=== PATIENT | male | born 1995 | race Two or more races ===

== ENCOUNTER 2023-07-15 20:55 | Emergency (ER) | payer OTHER ==
[~2023-07-15] VITALS: Ht 170.2 cm; Wt 115.7 kg
[2023-07-16] MEDS ORDERED: DEXAMETHASONE SODIUM PHOSPHATE 4 MG/ML VIAL IM ONE (00:45)
[2023-07-16] MEDS ORDERED: ACETAMINOPHEN 500 MG GEL..CAP PO ONE (00:45)
[2023-07-16 01:31] LABS: HEMATOCRIT 44.6 % (39.0-48.0); HEMOGLOBIN 15.7 g/dL (13-16.00); MEAN CELL VOLUME 83.7 fL (80.0-100.00); MEAN CORPUSCULAR HEMOGLOBIN 29.4 pg (27.00-32.0); MEAN CORPUSCULAR HGB CONC 35.1 g/dl (32.0-36.0); PLATELET COUNT 263 K/uL (150-450); RED BLOOD COUNT 5.33 M/uL (4.00-6.00); RED CELL DISTRIBUTION WIDTH 13.1 % (11.5-14.5)
[2023-07-16] MEDS ORDERED: OSEL75CA PO (02:37)
== END 2023-07-16 02:40 | disposition home or self-care (01) ==
LOC: ER 20:56
PROVIDERS: General Practice
DX: J11.1 Influenza due to unidentified influenza virus with other respiratory manifestations (principal); Z20.822 Contact with and (suspected) exposure to COVID-19

== ENCOUNTER 2024-01-18 11:12 | Emergency (ER) | payer OTHER ==
[~2024-01-18] VITALS: Ht 165.1 cm; Wt 117.9 kg
[~2024-01-18 11:12] MED LIST: OSEL75CA PO
[2024-01-18 11:25] VITALS: BP 106/63; O2SAT 97
[2024-01-18] MEDS ORDERED: BARIUM SULFATE 450 ML ORAL.SUSP PO ONE (11:50)
[2024-01-18 12:04] LABS: HEMATOCRIT 44.7 % (39.0-48.0); HEMOGLOBIN 15.3 g/dL (13-16.00); MEAN CELL VOLUME 84.3 fL (80.0-100.00); MEAN CORPUSCULAR HEMOGLOBIN 28.7 pg (27.00-32.0); MEAN CORPUSCULAR HGB CONC 34.1 g/dl (32.0-36.0); PLATELET COUNT 282 K/uL (150-450); RED BLOOD COUNT 5.31 M/uL (4.00-6.00); RED CELL DISTRIBUTION WIDTH 13.1 % (11.5-14.5)
== END 2024-01-18 15:29 | disposition home or self-care (01) ==
LOC: ER 11:14
PROVIDERS: Emergency Medicine
DX: K62.5 Hemorrhage of anus and rectum (principal); Z88.0 Allergy status to penicillin

== ENCOUNTER 2024-04-06 12:05 | Emergency (ER) | payer OTHER ==
[~2024-04-06] VITALS: Ht 167.6 cm; Wt 127.0 kg
[2024-04-06] MEDS ORDERED: KETOROLAC TROMETHAMINE 60 MG VIAL IM ONE (15:15)
[2024-04-06] MEDS ORDERED: CORTISPORIN EAR10 M1 OPHT (15:41)
[2024-04-06] MEDS ORDERED: AZITHROMYCIN500 MG PO (15:41)
== END 2024-04-06 16:00 | disposition home or self-care (01) ==
LOC: ER 12:07
DX: H66.91 Otitis media, unspecified, right ear (principal); Z88.0 Allergy status to penicillin